=== PATIENT | female | born 1940 | race Hispanic/Latino ===

== ENCOUNTER → 2023-02-24 | Outpatient (CLI) | payer MEDICARE ==
[~2023-02-24] MED LIST: AMLODIPINE BESY10 MG PO; AURYXIA210 MG PO; METOPROLOL SUCC50 MG PO
[2023-02-24 10:53] LABS: BASOPHILS # (AUTO) 0.1 (0.0-0.1); BASOPHILS % 1.6 % (0.0-1.0); EOSINOPHILS # (AUTO) 0.1 (0.0-0.4); EOSINOPHILS % 0.6 % (0.0-6.0); HEMATOCRIT 36.9 % (34.2-44.1); HEMOGLOBIN 11.5 g/dL (12.0-16.0); LYMPHOCYTES # (AUTO) 1.5 (1.0-3.2); LYMPHOCYTES % 17.9 % (18.0-39.1); MEAN CORPUSCULAR HGB CONC 31.2 g/dL (31-35); MEAN CORPUSCULAR VOLUME 92.9 fL (81-99); MONOCYTES # (AUTO) 0.5 (0.2-0.8); NEUTROPHILS % 73.5 % (38.7-80.0); PLATELET COUNT 308 x10e3/uL (140-360); RED BLOOD COUNT 3.97 x10e6/uL (3.6-5.1); RED CELL DISTRIBUTION WIDTH 15.4 % (11.7-14.4)
[2023-02-24 11:05] LABS: INR 0.95; PARTIAL THROMBOPLASTIN TIME 28.6 seconds (23.8-35.5); PROTHROMBIN TIME 13.2 seconds (11.9-14.5)
[2023-02-24 11:09] LABS: ANION GAP 18.9 mmol/L (8-16); CALCIUM 9.4 mg/dL (8.4-10.2); CREATININE, SERUM 8.06 mg/dL (0.57-1.11); POTASSIUM 3.9 mmol/L (3.5-5.1)
== END | disposition home or self-care (01) ==
LOC: OR 10:48 → LAB 10:48 → EDSTATUS 12:30
PROVIDERS: ATTEND Internal Medicine Gastroenterology
DX: Z12.11 Encounter for screening for malignant neoplasm of colon (principal); K92.1 Melena; R63.4 Abnormal weight loss; K21.9 Gastro-esophageal reflux disease without esophagitis; R53.83 Other fatigue; Z01.810 Encounter for preprocedural cardiovascular examination; Z53.8 Procedure and treatment not carried out for other reasons
CPT/HCPCS: 36415; 80048; 85025; 85610; 85730; 93005